=== PATIENT | male | born 1965 | race Caucasian/White ===

== ENCOUNTER 2021-09-29 00:48 | Inpatient (IN) ==
[2021-09-29] MEDS ORDERED: 0.9 % Sodium Chloride 1,000 ML IVC ONE ×2 (01:11→01:38)
[2021-09-29 01:19] LABS: Basophils # 0.1 K/mcL (0.0-0.2); Basophils % 0.7 %; Eosinophils # 0.1 K/mcL (0.0-0.6); Eosinophils % 0.9 %; Hematocrit 51.8 % (37.5-50.1); Hemoglobin 17.7 g/dL (12.9-16.9); Immature Granulocytes % 0.4 % (0-4); Lymphocytes # 3.2 K/mcL (0.6-4.6); Lymphocytes % 20.6 %; Mean Corpuscular HGB Conc 34.2 g/dL (31.6-35.5); Mean Corpuscular Hemoglobin 28.7 pg (28.0-33.3); Mean Corpuscular Volume 84.1 fL (83.0-100.0); Mean Platelet Volume 9.7 fL (9.4-12.4); Monocytes # 1.2 K/mcL (0.0-1.3); Monocytes % 7.8 %; Neutrophils # 10.7 K/mcL (1.6-8.9); Platelet Count 250 K/mcL (140-400); Red Blood Count 6.16 M/mcL (4.19-5.50); Red Cell Distribution Width 14.4 % (11.5-14.5); Segmented Neutrophils % 69.6 %; White Blood Count 15.3 K/mcL (4.3-11.1)
[2021-09-29 01:33] LABS: Alanine Aminotransferase 19 Units/L (7-52); Albumin 4.5 g/dL (3.5-5.7); Albumin/Globulin Ratio 1.6 (1.1-2.2); Alkaline Phosphatase 84 Units/L (34-104); Aspartate Amino Transferase 20 Units/L (13-39); BUN/Creatinine Ratio 39 (6-26); Bilirubin,Total 1.7 mg/dL (0.3-1.0); Blood Urea Nitrogen 51 mg/dL (6-20); Calcium 9.5 mg/dL (8.6-10.3); Carbon Dioxide 28 mEq/L (23-29); Chloride 95 mEq/L (98-107); Creatine Kinase 86 Units/L (30-223); Globulin 2.8 g/dL (2.4-3.5); Glucose 243 mg/dL (70-105); Osmolality,Calculated 306 (280-300); Potassium 3.5 mEq/L (3.5-5.1); Sodium 137 mEq/L (136-145); Total Protein 7.3 g/dL (6.4-8.9); eGFR For African Americans > 60 (> 60); eGFR For Non-African Americans 56 (> 60)
[2021-09-29 01:37] LABS: Troponin I 0.04 ng/mL (< 0.04)
[2021-09-29 02:11] LABS: Bilirubin,Urine Moderate (Negative); Blood,Urine Negative (Negative); Clarity,Urine Slightly Cloudy (Clear); Glucose,Urine (UA) 100 mg/dL (Normal); Ketones,Urine Negative (Negative); Leukocyte Esterase,Urine Negative (Negative); Nitrite,Urine Negative (Negative); PH,Urine 5.5 pH Units (5.0-8.0); Protein,Urine 30 mg/dL (Neg-Trace); Specific Gravity,Urine 1.025 (1.010-1.025); Urobilinogen,Urine Normal (Normal)
[2021-09-29 02:15] LABS: Color,Urine DARK YELLOW (Yellow)
[2021-09-29 02:19] LABS: Amorphous Sediment,Urine Few per hpf (None-Few)
[2021-09-29] MEDS ORDERED: Ondansetron ODT 4 MG TAB.RAPDIS SL PRN (02:34)
[2021-09-29] MEDS ORDERED: Naloxone 0.4 MG/ML INJ IVP PRN ×2 (02:34→03:55)
[2021-09-29] MEDS ORDERED: Ondansetron 4 MG/2 ML VIAL IVP PRN ×2 (02:34→03:55)
[2021-09-29] MEDS ORDERED: 0.9 % Sodium Chloride 1,000 ML IVC SCH (02:45)
[2021-09-29] MEDS: 0.9 % Sodium Chloride 1,000 ML IVC SCH ×3 (04:11→19:49)
[2021-09-29 04:28] LABS: Basophils # 0.1 K/mcL (0.0-0.2); Basophils % 0.6 %; Eosinophils # 0.1 K/mcL (0.0-0.6); Eosinophils % 0.8 %; Hematocrit 43.2 % (37.5-50.1); Immature Granulocytes % 0.4 % (0-4); Lymphocytes # 1.9 K/mcL (0.6-4.6); Lymphocytes % 16.1 %; Mean Corpuscular Hemoglobin 28.7 pg (28.0-33.3); Mean Corpuscular Volume 84.4 fL (83.0-100.0); Mean Platelet Volume 9.4 fL (9.4-12.4); Monocytes # 0.8 K/mcL (0.0-1.3); Monocytes % 6.6 %; Platelet Count 172 K/mcL (140-400); Red Blood Count 5.12 M/mcL (4.19-5.50); Red Cell Distribution Width 13.9 % (11.5-14.5); Segmented Neutrophils % 75.5 %; White Blood Count 11.9 K/mcL (4.3-11.1)
[2021-09-29 04:30] LABS: Hemoglobin 14.7 g/dL (12.9-16.9)
[2021-09-29 04:43] LABS: Alanine Aminotransferase 16 Units/L (7-52); Albumin 3.5 g/dL (3.5-5.7); Albumin/Globulin Ratio 1.7 (1.1-2.2); Alkaline Phosphatase 63 Units/L (34-104); Aspartate Amino Transferase 17 Units/L (13-39); BUN/Creatinine Ratio 43 (6-26); Bilirubin,Total 1.4 mg/dL (0.3-1.0); Blood Urea Nitrogen 44 mg/dL (6-20); Carbon Dioxide 29 mEq/L (23-29); Chloride 103 mEq/L (98-107); Globulin 2.1 g/dL (2.4-3.5); Glucose 225 mg/dL (70-105); Osmolality,Calculated 304 (280-300); Sodium 138 mEq/L (136-145); Total Protein 5.6 g/dL (6.4-8.9); eGFR For African Americans > 60 (> 60); eGFR For Non-African Americans > 60 (> 60)
[2021-09-29] MEDS ORDERED: Dextrose 4 GM Chewable Tablets PO PRN ×2 (13:06)
[2021-09-29] MEDS ORDERED: D5% in Water 1,000 ML IVC PRN (13:06)
[2021-09-29] MEDS ORDERED: *HR* Dextrose 50 % in Water (Syg) 50 ML SYRINGE IVP PRN (13:06)
[2021-09-29] MEDS: Aspirin Enteric Coated 81 MG Tablet PO SCH (16:21)
[2021-09-29] MEDS: Insulin LISPRO 300 UNITS/3 ML VIAL SUBQ SCH ×2 (16:22→19:46)
[2021-09-29] MEDS: Ondansetron ODT 4 MG TAB.RAPDIS SL PRN (22:26)
[2021-09-30 05:00] LABS: Hematocrit 39.7 % (37.5-50.1); Hemoglobin 13.6 g/dL (12.9-16.9); Mean Corpuscular HGB Conc 34.3 g/dL (31.6-35.5); Mean Corpuscular Hemoglobin 28.6 pg (28.0-33.3); Mean Corpuscular Volume 83.6 fL (83.0-100.0); Mean Platelet Volume 10.1 fL (9.4-12.4); Platelet Count 151 K/mcL (140-400); Red Blood Count 4.75 M/mcL (4.19-5.50); Red Cell Distribution Width 13.6 % (11.5-14.5); White Blood Count 10.2 K/mcL (4.3-11.1)
[2021-09-30 05:14] LABS: Alanine Aminotransferase 17 Units/L (7-52); Albumin 3.1 g/dL (3.5-5.7); Albumin/Globulin Ratio 1.7 (1.1-2.2); Alkaline Phosphatase 68 Units/L (34-104); Aspartate Amino Transferase 18 Units/L (13-39); BUN/Creatinine Ratio 27 (6-26); Bilirubin,Total 0.7 mg/dL (0.3-1.0); Blood Urea Nitrogen 21 mg/dL (6-20); Calcium 7.9 mg/dL (8.6-10.3); Carbon Dioxide 31 mEq/L (23-29); Chloride 104 mEq/L (98-107); Globulin 1.8 g/dL (2.4-3.5); Glucose 192 mg/dL (70-105); Magnesium 1.9 mg/dL (1.6-2.6); Osmolality,Calculated 298 (280-300); Potassium 3.4 mEq/L (3.5-5.1); Sodium 140 mEq/L (136-145); Total Protein 4.9 g/dL (6.4-8.9); eGFR For African Americans > 60 (> 60); eGFR For Non-African Americans > 60 (> 60)
[2021-09-30] MEDS: 0.9 % Sodium Chloride 1,000 ML IVC SCH ×2 (05:32→11:19)
[2021-09-30] MEDS: *HR* Enoxaparin 40 MG/0.4 ML SYRINGE SQ SCH (05:32)
[2021-09-30 05:50] LABS: Thyroid Stimulating Hormone 0.544 mcIU/mL (0.340-5.600)
[2021-09-30] MEDS: Ondansetron ODT 4 MG TAB.RAPDIS SL PRN (05:59)
[2021-09-30 08:53] LABS: Estimated Average Glucose 140 mg/dl; Hemoglobin A1C 6.5 %
[2021-09-30] MEDS: Insulin LISPRO 300 UNITS/3 ML VIAL SUBQ SCH ×4 (10:45→22:50)
[2021-09-30] MEDS: Aspirin Enteric Coated 81 MG Tablet PO SCH (10:47)
[2021-09-30] MEDS: Megestrol Acetate 400 MG/10 ML UDC PO SCH (16:51)
[2021-10-01 04:45] LABS: Basophils % 0.5 %; Eosinophils # 0.1 K/mcL (0.0-0.6); Eosinophils % 1.2 %; Hematocrit 38.2 % (37.5-50.1); Hemoglobin 13.1 g/dL (12.9-16.9); Immature Granulocytes % 0.3 % (0-4); Lymphocytes # 2.1 K/mcL (0.6-4.6); Lymphocytes % 24.8 %; Mean Corpuscular HGB Conc 34.3 g/dL (31.6-35.5); Mean Corpuscular Hemoglobin 28.7 pg (28.0-33.3); Mean Corpuscular Volume 83.6 fL (83.0-100.0); Mean Platelet Volume 10.5 fL (9.4-12.4); Monocytes % 11.7 %; Neutrophils # 5.3 K/mcL (1.6-8.9); Red Blood Count 4.57 M/mcL (4.19-5.50); Red Cell Distribution Width 13.7 % (11.5-14.5); Segmented Neutrophils % 61.5 %; White Blood Count 8.6 K/mcL (4.3-11.1)
[2021-10-01 04:48] LABS: Platelet Count 120 K/mcL (140-400); Platelet Estimate Slight Decrease (Normal)
[2021-10-01 04:59] LABS: BUN/Creatinine Ratio 19 (6-26); Blood Urea Nitrogen 16 mg/dL (6-20); Carbon Dioxide 33 mEq/L (23-29); Chloride 101 mEq/L (98-107); Glucose 220 mg/dL (70-105); Osmolality,Calculated 292 (280-300); Potassium 3.3 mEq/L (3.5-5.1); Sodium 137 mEq/L (136-145); eGFR For African Americans > 60 (> 60); eGFR For Non-African Americans > 60 (> 60)
[2021-10-01] MEDS: *HR* Enoxaparin 40 MG/0.4 ML SYRINGE SQ SCH (06:44)
[2021-10-01] MEDS: Aspirin Enteric Coated 81 MG Tablet PO SCH (08:26)
[2021-10-01] MEDS: Megestrol Acetate 400 MG/10 ML UDC PO SCH (08:26)
[2021-10-01] MEDS: Insulin LISPRO 300 UNITS/3 ML VIAL SUBQ SCH ×4 (08:26→21:11)
[2021-10-01] MEDS: Cyanocobalamin (B-12) 1,000 MCG/ML VIAL IM SCH (11:34)
[2021-10-01] MEDS ORDERED: Simethicone 80 MG TAB.CHEW PO PRN (13:33)
[2021-10-02 04:42] LABS: Basophils % 0.4 %; Eosinophils # 0.2 K/mcL (0.0-0.6); Eosinophils % 2.1 %; Hematocrit 37.8 % (37.5-50.1); Hemoglobin 13.1 g/dL (12.9-16.9); Immature Granulocytes % 0.4 % (0-4); Lymphocytes # 2.6 K/mcL (0.6-4.6); Lymphocytes % 27.4 %; Mean Corpuscular HGB Conc 34.7 g/dL (31.6-35.5); Mean Corpuscular Hemoglobin 28.8 pg (28.0-33.3); Mean Corpuscular Volume 83.1 fL (83.0-100.0); Monocytes # 1.2 K/mcL (0.0-1.3); Monocytes % 13.2 %; Neutrophils # 5.3 K/mcL (1.6-8.9); Red Blood Count 4.55 M/mcL (4.19-5.50); Red Cell Distribution Width 13.9 % (11.5-14.5); Segmented Neutrophils % 56.5 %; White Blood Count 9.3 K/mcL (4.3-11.1)
[2021-10-02 04:45] LABS: Platelet Count 132 K/mcL (140-400)
[2021-10-02 04:46] LABS: Platelet Estimate Slight Decrease (Normal)
[2021-10-02 04:55] LABS: BUN/Creatinine Ratio 21 (6-26); Blood Urea Nitrogen 15 mg/dL (6-20); Calcium 8.3 mg/dL (8.6-10.3); Carbon Dioxide 30 mEq/L (23-29); Chloride 101 mEq/L (98-107); Glucose 163 mg/dL (70-105); Osmolality,Calculated 282 (280-300); Potassium 3.6 mEq/L (3.5-5.1); Sodium 134 mEq/L (136-145); eGFR For African Americans > 60 (> 60); eGFR For Non-African Americans > 60 (> 60)
[2021-10-02] MEDS: *HR* Enoxaparin 40 MG/0.4 ML SYRINGE SQ SCH (05:21)
[2021-10-02 08:12] LABS: % Iron Saturation 48 % (20-55); Iron 101 mcg/dL (65-175); Transferrin 151 mg/dL (203-362)
[2021-10-02 08:31] LABS: Ferritin 342 ng/mL (20-250)
[2021-10-02] MEDS: Insulin LISPRO 300 UNITS/3 ML VIAL SUBQ SCH ×4 (08:45→20:21)
[2021-10-02] MEDS: Megestrol Acetate 400 MG/10 ML UDC PO SCH (08:45)
[2021-10-02] MEDS: Aspirin Enteric Coated 81 MG Tablet PO SCH (08:45)
[2021-10-02] MEDS: Cyanocobalamin (B-12) 1,000 MCG/ML VIAL IM SCH (08:46)
[2021-10-03] MEDS: *HR* Enoxaparin 40 MG/0.4 ML SYRINGE SQ SCH (05:35)
[2021-10-03] MEDS: Insulin LISPRO 300 UNITS/3 ML VIAL SUBQ SCH ×3 (08:35→17:08)
[2021-10-03] MEDS: Megestrol Acetate 400 MG/10 ML UDC PO SCH (08:36)
[2021-10-03] MEDS: Cyanocobalamin (B-12) 1,000 MCG/ML VIAL IM SCH (08:36)
[2021-10-03] MEDS: Aspirin Enteric Coated 81 MG Tablet PO SCH (08:36)
[2021-10-03 11:10] VITALS: O2SAT 99
[2021-10-03 17:22] VITALS: BP 104/70; PULSE 88; RESP 16; TEMP 98.5
== END 2021-10-03 17:38 | DRG 861 ==
LOC: EMEROOGRE 00:48 → INPGRE 03:00
PROVIDERS: ADMIT Family Medicine; ATTEND Family Medicine